=== PATIENT | male | born 1995 | race Caucasian/White ===

== ENCOUNTER → 2020-10-06 | Outpatient (CLI) | payer OTHER ==
[~2020-10-06] MED LIST: E-Z-GAS II EFFERVESCENT PACKET (SODIUM BICARB./CITRIC ACID/SIMETHICONE) As Ordered ONE; E-Z-HD 98% w/w 340GM SUSP BTL As Ordered ONE; E-Z-PAQUE 96% w/w SUSP 176GM BTL As Ordered ONE
--- NOTE | 2020-10-07 16:49 | REP ---
INDICATION: COUGH. COMPARISON: None. TECHNIQUE: This procedure was performed under the direct supervision of Dr. Ashley. Images were reviewed with Dr. Ashley. Liquid barium and gas producing granules were given in the erect position as well as liquid barium in the prone oblique positions in order to perform a double contrast esophagram examination. 0.5 minutes of fluoro time was utilized for this procedure. FINDINGS: A single view PA chest x-ray is submitted as a gambling cashier film. The superior mediastinal structures are midline. The heart size is within normal limits. The lungs are clear. The oral and pharyngeal stages of deglutition are unremarkable. Esophageal transport is prompt and efficient and there is no esophagitis, stricture or mucosal ring. There is a small sliding-type hiatal hernia.Gastroesophageal reflux is not demonstrated on this examination. IMPRESSION: There is a small sliding-type hiatal hernia. Otherwise, unremarkable double-contrast esophagram examination. <Electronically signed by Joe Wang > 10/06/20 1437 <Electronically signed by Luis Ashley > 10/07/20 [id number]
== END ==
LOC: M RAD 09:10
PROVIDERS: ATTEND Specialist
DX: R05 Cough (principal); K44.9 Diaphragmatic hernia without obstruction or gangrene

== ENCOUNTER → 2020-11-17 | Outpatient (REF) ==
--- NOTE | 2020-11-17 15:34 | REPPI ---
INDICATION: DISABILITY DIAGNOSIS DETERMINATION COMPARISON: None. TECHNIQUE: Internal and external views of the left shoulder. FINDINGS: Glenohumeral joint appears intact and without fracture or dislocation. The acromioclavicular joint is widened to approximately 23 mm which may represent normal variant or acromioclavicular joint separation and should be correlated clinically. No associated fracture. No degenerative changes appreciated. IMPRESSION: Nonspecific widening to the acromioclavicular joint warrants correlation.. <Electronically signed by Alon Lamar > 11/17/20 0105
--- NOTE | 2020-11-17 15:35 | REPPI ---
INDICATION: DISABILITY DIAGNOSIS DETERMINATION COMPARISON: None. TECHNIQUE: PA and lateral. FINDINGS: The mediastinum and cardiac silhouette are normal. The lung galicia are clear and without acute consolidation, effusion, or pneumothorax. The skeletal structures are intact and normal. IMPRESSION: No acute cardiopulmonary process. <Electronically signed by Alon Lamar > 11/17/20 1533
--- NOTE | 2020-11-17 15:35 | REPPI ---
INDICATION: DISABILITY DIAGNOSIS DETERMINATION. COMPARISON: None. TECHNIQUE: Lateral, Juan, Rea, and SMV views of the sinuses FINDINGS: Sinuses are well aerated and clear. No mucosal thickening or fluid levels are identified. No foreign body. Osseous structures are intact. IMPRESSION: Normal sinus radiographs. <Electronically signed by Alon Lamar > 11/17/20 [id number]
== END ==
LOC: M PLAIMG 14:37
PROVIDERS: ATTEND Internal Medicine
DX: Z02.71 Encounter for disability determination (principal)

== ENCOUNTER → 2022-05-09 | Outpatient (CLI) | payer OTHER | LOC: M SOG 14:19 | PROVIDERS: ATTEND Orthopaedic Surgery Hand Surgery | DX: M25.521 Pain in right elbow (principal) ==

== ENCOUNTER 2022-10-12 10:20 | Day surgery (SDC) | payer OTHER ==
[~2022-10-12] VITALS: Ht 177.8 cm; Wt 113.4 kg
[~2022-10-12 10:20] MED LIST changes: +ACETAMINOPHEN 1000MG 100ML IV BAG As Ordered ONE; -E-Z-GAS II EFFERVESCENT PACKET (SODIUM BICARB./CITRIC ACID/SIMETHICONE) As Ordered ONE; -E-Z-HD 98% w/w 340GM SUSP BTL As Ordered ONE; -E-Z-PAQUE 96% w/w SUSP 176GM BTL As Ordered ONE; +KETOROLAC 60MG 2ML VIAL As Ordered ONE; +LIDOCAINE 2% 100MG/5ML SDV (FOR ANES.) As Ordered ONE; +MIDAZOLAM INJ 2MG/2ML VIAL As Ordered ONE; +ONDANSETRON 4MG 2ML VIAL As Ordered ONE; +ROCURONIUM BROMIDE 50MG/5ML VIAL As Ordered ONE; +SUGAMMADEX SODIUM 500 MG/5 ML VIAL (BRIDION) As Ordered ONE; +fentaNYL 100 MCG/2 ML INJECTION As Ordered ONE; +propofoL 200 MG/20 ML VIAL As Ordered ONE
[2022-10-12] MEDS ORDERED: LR 1,000 ML IV SCH ×2 (10:25→13:45)
[2022-10-12] MEDS ORDERED: ROCURONIUM BROMIDE 50MG/5ML VIAL As Ordered ONE (11:37)
[2022-10-12] MEDS ORDERED: propofoL 200 MG/20 ML VIAL As Ordered ONE (11:38)
[2022-10-12] MEDS ORDERED: LIDOCAINE W/EPINEPHRINE 1% 20ML VIAL As Ordered ONE (11:40)
[2022-10-12] MEDS ORDERED: OXYMETAZOLINE 0.05% NASAL SPRAY (AFRIN) As Ordered ONE (11:41)
[2022-10-12] MEDS ORDERED: COCAINE 4% 4ML NASAL SOLUTION BTL As Ordered ONE (12:10)
[2022-10-12] MEDS ORDERED: ONDANSETRON 4MG 2ML VIAL IV PRN ×2 (12:50→13:45)
[2022-10-12] MEDS ORDERED: MORPHINE 2 MG/ML 1ML VIAL IV PRN (12:50)
[2022-10-12] MEDS ORDERED: fentaNYL 100 MCG/2 ML INJECTION IV PRN (12:50)
[2022-10-12] MEDS ORDERED: ANEXSIA, NORCO 7.5MG/325MG TABLET(HYDROCODONE/APAP) PO PRN (13:45)
[2022-10-12] MEDS: oxyCODONE 5MG TAB PO PRN ×2 (13:56→14:34)
[2022-10-12 14:57] VITALS: BP 132/69
== END 2022-10-12 15:06 | disposition home or self-care (01) ==
LOC: M SDC 10:20
PROVIDERS: ATTEND Otolaryngology
DX: J34.2 Deviated nasal septum (principal); J34.3 Hypertrophy of nasal turbinates
CPT/HCPCS: 30140; 30520; C9143; J0131; J1100; J1885; J2250; J2405; J3010